=== PATIENT | male | born 1980 | race Caucasian/White ===

== ENCOUNTER 2017-04-23 19:46 | Emergency (ER) | payer OTHER ==
[~2017-04-23] VITALS: Ht 177.8 cm; Wt 70.3 kg
[~2017-04-23 19:46] MED LIST: B-1100 MG PO; DEPAKOTE500 M1 PO; GABAPENTIN100 M2 PO; LEVSIN-SL0.125 MG SL; QUETIAPINE FUM100 M1 PO; VITAMIN B-121000 MC3 PO; VITAMIN B-650 M2 PO; VITAMIN D250000 UNIT PO; VITAMIN E100 UNIT PO
[2017-04-23 20:01] VITALS: BP 133/85
--- NOTE | 2017-04-23 20:07 | ED GI/GU/ABDOMINAL COMPLAINT ---
History of Present Illness General Chief Complaint: General Adult Stated Complaint: PT DIZZY,STOMACH PAIN Source: patient Exam Limitations: no limitations Vital Signs & Intake/Output Vital Signs & Intake/Output Vital Signs Date Time Temp Pulse Resp B/P B/P Pulse O2 O2 Flow FiO2 Mean Ox Delivery Rate 04/23 2001 99.0 89 16 133/85 97 Room Air ED Intake and Output 04/24 0000 04/23 1200 Intake Total Output Total Balance Patient 155 lb Weight Weight Reported by Patient Measurement Method Allergies Coded Allergies: cat dander (EYES SWELL AND GET BLOTCHY 04/26/16) Reconcile Medications Cholecalciferol (Vitamin D3) (Vitamin D) 2,000 UNIT TABLET 1 TAB PO DAILY SUPPLEMENT (Reported) Cyanocobalamin (Vitamin B-12) (Unknown Strength) TABLET (Unknown Dose) PO DAILY SUPPLEMENT (Reported) Divalproex Sodium (Depakote) 500 MG TABLET. 2 TAB PO BID MENTAL HEALTH/BRAIN SEIZURES (Reported) Ergocalciferol (Vitamin D2) (Vitamin D2) 50,000 UNIT CAPSULE 1 CAP PO QW SUPPLEMENT (Reported) Folic Acid 1 MG TABLET 1 TAB PO DAILY SUPPLEMENT (Reported) Gabapentin 100 MG CAPSULE 1 CAP PO TID NERVE PAIN (Reported) Hyoscyamine Sulfate (Levsin-Sl) 0.125 MG TAB.SUBL 1 TAB SL BID PRN ABD CRAMPS (Reported) Pyridoxine HCl (Vitamin B-6) (Unknown Strength) TABLET (Unknown Dose) PO DAILY SUPPLEMENT (Reported) Quetiapine Fumarate 100 MG TABLET 1 TAB PO QPM SLEEP/MENTAL HEALTH (Reported) Thiamine HCl (B-1) (Unknown Strength) TABLET (Unknown Dose) PO DAILY SUPPLEMENT (Reported) Vitamin E Acid Succinate (Vitamin E) (Unknown Strength) TABLET (Unknown Dose) PO DAILY SUPPLEMENT (Reported) Triage Note: C/O ABDOMINAL PAIN ON LEFT SIDE RADIATING ACROSS SINCE YESTERDAY, -N/V. LAST BM TODAY AND FEELS PAIN IMPROVES. ALSO ENDORSES LETHARGY AND SLEEPING MORE RECENTLY. HAS SIGNIFICANT PSY AND NEURO HX. PT SWALLOWED DRAINO A CHILD AND HAD STOMACH REMOVAL AND GI RECONSTRUCTION. C/O DIZZINESS AND DOUBLE VISION. DR TASHA SRINIVASAN IN TRIAGE. PT REPORTS PAIN TO PALPATION OF RLQ. DENIES SYMPTOMS Triage Nurses Notes Reviewed? 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 He notes diffuse upper and left sided abdominal discomfort. He notes that he has had a hard time to do a bathroom break. He notes no nausea, vomiting, diarrhea, chest pain, shortness of breath. He is otherwise well. Past History Travel History Traveled to [place] past 21 day No Medical History Any Pertinent Medical History? see below for history Neurological: TBI BRAIN SEIZURES NON ALCOHOLIC WERNICKES ENCEPHALOPATHY EENT: NONE Cardiovascular: MURMUR Respiratory: HX COLLAPSED LUNG S/P SX Gastrointestinal: ESOPHAGEAL RESECTION PART OF STOMACH REMOVED Hepatic: NONE Renal: NONE Musculoskeletal: NONE Psychiatric: depression, schizo affective disorder Endocrine: NONE Blood Disorders: NONE Cancer(s): NONE ORTHOPAEDIC TECHNOLOGIST/Reproductive: NONE Surgical History Surgical History: none Psychosocial History Who do you live with Mother Services at Home None What is your primary language Yakut Tobacco Use: Current Daily Use Daily Tobacco Use Amount/Type: Smokeless tobacco daily ETOH Use: denies use Illicit Drug Use: denies illicit drug use Family History Hx Contributory? No Review of Systems Review of Systems Constitutional: Reports: no symptoms. EENTM: Reports: no symptoms. Respiratory: Reports: no symptoms. Cardiovascular: Reports: no symptoms. GI: Reports: no symptoms. Genitourinary: Reports: no symptoms. Musculoskeletal: Reports: no symptoms. Skin: Reports: no symptoms. Neurological/Psychological: Reports: no symptoms. Hematologic/Endocrine: Reports: no symptoms. Immunologic/Allergic: Reports: no symptoms. All Other Systems: Reviewed and Negative Physical Exam Physical Exam General Appearance: well developed/nourished, no apparent distress Head: atraumatic, normal appearance Eyes: Bilateral: normal appearance. Ears, Nose, Throat, Mouth: hearing grossly normal Neck: normal inspection, supple, full range of motion, normal alignment Respiratory: normal breath sounds, chest non-tender, no respiratory distress Cardiovascular: regular rate/rhythm Gastrointestinal: normal bowel sounds, soft, rlq tenderness to palpation Back: normal inspection Extremities: normal range of motion Neurologic/Psych: no motor/sensory deficits, awake, alert, oriented x 3 Skin: intact, normal color, warm/dry Core Measures ACS in differential dx? No Severe Sepsis Present: No Septic Shock Present: No Progress Differential Diagnosis: appendicitis, cholecystitis, diverticulitis, gastritis, hepatitis, vs other Plan of Care: Orders Procedure Date/time Status EKG 04/23 2010 Active TROPONIN LEVEL 04/23 2007 Complete LIPASE 04/23 2007 Complete HEPATIC FUNCTION PANEL 04/23 2007 Complete CBC WITHOUT DIFFERENTIAL 04/23 2007 Complete BASIC METABOLIC PANEL 04/23 2007 Complete AMYLASE 04/23 2007 Complete Laboratory Tests 04/23/17 2145: Anion Gap 11, Estimated GFR > 60, BUN/Creatinine Ratio 15.0, Glucose 85, Calcium 9.1, Total Bilirubin 0.6, Direct Bilirubin 0.3, AST 24, ALT 25, Alkaline Phosphatase 59, Troponin I < 0.01, Total Protein 6.3, Albumin 3.8, Amylase 40, Lipase 62, CBC w Diff NO MAN DIFF REQ, RBC 4.86, MCV 89.4, MCH 29.9, RDW 13.9, MPV 8.9, Gran % 68.1, Lymphocytes % 18.3 L, Monocytes % 12.6 H, Eosinophils % 0.6, Basophils % 0.4, Absolute Granulocytes 6.5, Absolute Lymphocytes 1.7, Absolute Monocytes 1.2 H, Absolute Eosinophils 0.1, Absolute Basophils 0, PUBS MCHC 33.5 Diagnostic Imaging: Viewed by Me: CT Scan. Discussed w/RAD: CT Scan. Radiology Impression: abd/pelvic ct... no acute change. Initial ED EKG: normal axis, normal intervals, normal p-waves, normal QRS complex, normal sinus rhythm Comments: PATIENT: JEAN PIERRE MONTELONGO PRESENT AGE: 37 PATIENT ACCOUNT NO: [id number] : 81 LOCATION: [facility] ORDERING PHYSICIAN: LON CORDOVA MD SERVICE DATE: 04/23/17 EXAM TYPE: CAT - CT ABD & PELVIS W/O IV CONTRAS EXAMINATION: CT ABDOMEN AND PELVIS WITHOUT CONTRAST CLINICAL INFORMATION: Right lower quadrant pain, history of gastric reconstruction as a child. COMPARISON: 03/08/2012. TECHNIQUE: Multidetector volumetric imaging was performed from the superior aspect of the liver through the pubic symphysis. Sagittal and coronal reformatted images were obtained on the technologist's workstation. DLP: 305 mGy-cm. FINDINGS: LUNG BASES: Left hemidiaphragm remains elevated with multiple air and debris filled loops of bowel incompletely visualized in the lower left hemithorax with left basilar atelectasis slightly improved compared with the previous exam. Loop of bowel seen in the anterior mediastinum again appears to communicate with the stomach anteriorly also appears largely unchanged. LIVER AND SPLEEN: Unremarkable. PANCREAS GALLBLADDER AND BILIARY TREE: What appears to represent the pancreas appears unremarkable in this patient with a lack of intraperitoneal fat and without intravenous contrast on this exam. The gallbladder is contracted. Possibly physiologic. There is no biliary dilatation. KIDNEYS, URETERS, AND ADRENALS: Unremarkable. URINARY BLADDER: Only partially fluid-filled and unremarkable. GI TRACT: Findings suggest a previous right hemicolectomy likely related to the surgery in the left upper quadrant and mediastinum. Small bowel loops appear nonobstructed without significant mural thickening or edematous changes. Appendix is not identified. PERITONEAL CAVITY: No intraperitoneal free fluid is seen. No focal masses. RETROPERITONEUM: Imaging through the retroperitoneum is somewhat limited due to lack of oral IV and peritoneal fat for contrast although no definite adenopathy or masses are seen. No significant hernia is seen. PELVIC ORGANS: Unremarkable. OSSEOUS STRUCTURES: No focal osseous lesions. Deformity of the left lateral ribs. A developmental or postsurgical unchanged. ANTERIOR ABDOMINAL WALL AND SOFT TISSUES: Unremarkable. IMPRESSION: 1. No evidence of an acute process. 2. Postsurgical changes in the lower left hemithorax, left upper quadrant and anterior mediastinum without significant change compared with previous exam. 3. Probable partial hemicolectomy changes in the abdomen without evidence of focal abnormality. DICTATED BY: TUTU RIOS MD DATE/TIME DICTATED:04/23/172042 STEAM TURBINE ASSEMBLER:JOSE DATE/TIME TRANSCRIBED:04/23/172042 CONFIDENTIAL, DO NOT COPY WITHOUT APPROPRIATE AUTHORIZATION. <Electronically signed in Other Vendor System> SIGNED BY: TUTU RIOS MD [id number] Departure Departure Disposition: HOME OR SELF CARE Condition: Stable Clinical Impression Primary Impression: Abdominal pain Referrals: SHAINA GAMBLE APRN (PCP/Family) Departure Forms: Customer Survey General Discharge Information
--- NOTE | 2017-04-23 21:49 | CT SCAN REPORT ---
EXAMINATION: CT ABDOMEN AND PELVIS WITHOUT CONTRAST CLINICAL INFORMATION: Right lower quadrant pain, history of gastric reconstruction as a child. COMPARISON: 03/08/2012. TECHNIQUE: Multidetector volumetric imaging was performed from the superior aspect of the liver through the pubic symphysis. Sagittal and coronal reformatted images were obtained on the technologist's workstation. DLP: 305 mGy-cm. FINDINGS: LUNG BASES: Left hemidiaphragm remains elevated with multiple air and debris filled loops of bowel incompletely visualized in the lower left hemithorax with left basilar atelectasis slightly improved compared with the previous exam. Loop of bowel seen in the anterior mediastinum again appears to communicate with the stomach anteriorly also appears largely unchanged. LIVER AND SPLEEN: Unremarkable. PANCREAS GALLBLADDER AND BILIARY TREE: What appears to represent the pancreas appears unremarkable in this patient with a lack of intraperitoneal fat and without intravenous contrast on this exam. The gallbladder is contracted. Possibly physiologic. There is no biliary dilatation. KIDNEYS, URETERS, AND ADRENALS: Unremarkable. URINARY BLADDER: Only partially fluid-filled and unremarkable. GI TRACT: Findings suggest a previous right hemicolectomy likely related to the surgery in the left upper quadrant and mediastinum. Small bowel loops appear nonobstructed without significant mural thickening or edematous changes. Appendix is not identified. PERITONEAL CAVITY: No intraperitoneal free fluid is seen. No focal masses. RETROPERITONEUM: Imaging through the retroperitoneum is somewhat limited due to lack of oral IV and peritoneal fat for contrast although no definite adenopathy or masses are seen. No significant hernia is seen. PELVIC ORGANS: Unremarkable. OSSEOUS STRUCTURES: No focal osseous lesions. Deformity of the left lateral ribs. A developmental or postsurgical unchanged. ANTERIOR ABDOMINAL WALL AND SOFT TISSUES: Unremarkable. IMPRESSION: 1. No evidence of an acute process. 2. Postsurgical changes in the lower left hemithorax, left upper quadrant and anterior mediastinum without significant change compared with previous exam. 3. Probable partial hemicolectomy changes in the abdomen without evidence of focal abnormality.
[2017-04-23 21:52] LABS: ABSOLUTE BASOPHIL COUNT 0 /CUMM (0.0-0.2); ABSOLUTE EOSINOPHIL COUNT 0.1 /CUMM (0.0-0.7); ABSOLUTE GRANULOCYTE CT 6.5 /CUMM (1.4-6.5); ABSOLUTE LYMPH COUNT 1.7 /CUMM (1.2-3.4); ABSOLUTE MONOCYTE COUNT 1.2 /CUMM (0.10-0.60); BASOPHIL % 0.4 % (0.0-2.0); EOSINOPHIL % 0.6 % (0-5); GRANULOCYTE % 68.1 % (42.2-75.2); HEMATOCRIT 43.5 % (42-52); MEAN CORPUSCULAR HGB 29.9 PG (27.0-31.0); MEAN CORPUSCULAR HGB CONC 33.5 G/DL (33.0-37.0); MEAN CORPUSCULAR VOLUME 89.4 FL (80.0-94.0); MEAN PLATELET VOLUME 8.9 FL (7.4-10.4); PLATELET COUNT 205 /CUMM (130-400); RBC DISTRIBUTION WIDTH 13.9 % (11.5-14.5); RED BLOOD CELL CT 4.86 /CUMM (4.70-6.10); WHITE BLOOD CELL COUNT 9.5 /CUMM (4.8-10.8)
[2017-04-23] MEDS ORDERED: FOLIC ACID1 M1 PO (22:03)
[2017-04-23] MEDS ORDERED: VITAMIN D2000 UNI1 PO (22:03)
== END 2017-04-23 23:21 ==
LOC: ERH 19:46
PROVIDERS: Pediatrics
DX: R10.84 Generalized abdominal pain (principal)
CPT/HCPCS: 74176; 93005; 93010